=== PATIENT | male | born 1975 | race Hispanic/Latino ===

== ENCOUNTER 2022-01-18 03:49 | Emergency (ER) | payer OTHER ==
[~2022-01-18] VITALS: Ht 180.3 cm; Wt 111.1 kg
[~2022-01-18 03:49] MED LIST: LISI40TA9 PO
[2022-01-18 04:44] LABS: BASOPHILS % (AUTO) 0.2 % (0.0-5.0); EOSINOPHILS % (AUTO) 4.5 % (0.0-8.0); HEMATOCRIT 42.4 % (42-54); LYMPHOCYTES % (AUTO) 37.4 % (21.0-51.0); MEAN CORPUSCULAR HEMOGLOBIN 30.7 pg (27.0-33.0); MEAN CORPUSCULAR HGB CONC 33.5 g/dL (32.0-36.0); MEAN CORPUSCULAR VOLUME 91.8 fL (79-99); MONOCYTES % (AUTO) 13.6 % (3.0-13.0); PLATELET COUNT (AUTO) 240 K/uL (130-400); RED BLOOD CELL COUNT(AUTO) 4.62 MIL/uL (4.50-6.20); RED CELL DISTRIBUTION WIDTH 12.5 % (11.0-15.5); WHITE BLOOD COUNT (AUTO) 8.8 K/uL (4.8-10.8)
[2022-01-18 04:54] LABS: POTASSIUM 4.2 mmol/L (3.5-5.1)
[2022-01-18 05:01] LABS: ALBUMIN 3.7 g/dL (3.5-5.0); BILIRUBIN,TOTAL 0.4 mg/dL (0.2-1.0); TOTAL PROTEIN, SERUM 7.7 g/dL (6.0-8.3)
[2022-01-18 05:53] VITALS: BP 121/78
== END 2022-01-18 06:08 | disposition home or self-care (01) ==
LOC: EDH 03:49
DX: R00.2 Palpitations (principal); F14.10 Cocaine abuse, uncomplicated; F10.10 Alcohol abuse, uncomplicated; F41.9 Anxiety disorder, unspecified; E11.9 Type 2 diabetes mellitus without complications; I10 Essential (primary) hypertension; Z79.899 Other long term (current) drug therapy; Y90.9 Presence of alcohol in blood, level not specified
CPT/HCPCS: 36415; 80053; 84484; 85025; 93005

== ENCOUNTER 2024-11-04 11:14 | Emergency (ER) | payer BC, OTHER ==
[~2024-11-04] VITALS: Ht 180.3 cm; Wt 88.2 kg
--- NOTE | 2024-11-04 11:59 | ERN ---
General Chief Complaint: Tarry Stool Stated Complaint: TARRY STOOL Time Seen by MD: 11:38 History of Present Illness Initial Comments This is a case of 49-year-old male with a past medical history of gastritis, diabetes, hypertension who presented to the ER with the complaints of intermittent left upper quadrant pain associated with black and tarry stools since the past 2 weeks. He also mentions experiencing a pop sensation and pain on the right upper abdominal side while picking up a box recently which persisted. He also mentions experiencing fever, chills, productive cough, cold since the past 3 days. He denies nausea, vomiting, chest pain, palpitations, burning sensation when urinating/increased frequency of urination, diarrhea, shortness of breath. Allergies: Coded Allergies: No Known Drug Allergies (Verified Allergy, Unknown, 03/08/15) Home Meds Active Scripts Lisinopril (Lisinopril) 40 Mg Tablet, 40 MG PO DAILY for 30 Days, TAB Prov:EUNICE FIGUEROA MD 03/08/15 Past Medical History Past Medical History: Depression, Diabetes-Type II, Hypertension Past Surgical History: None Social History Social History: Drugs, ETOH ROS Dictation CONSTITUTIONAL: Fever, chills, cold, headache no weakness, no diaphoresis, no malaise. HEAD/FACE: No signs of trauma. EENT: No eye pain, no blurred vision, no tearing, no double vision, no ear pain, no ear discharge, no nose pain, no nasal congestion, no throat pain, no throat swelling, no mouth pain. RESPIRATORY: Productive cough, no orthopnea, no SOB, no stridor, no wheezing. CARDIOVASCULAR: No chest pain, no edema, no palpitations, no syncope. GASTROINTESTINAL/ABDOMINAL: Right upper quadrant and left upper quadrant pain, black and tarry stools, no constipation, no diarrhea, no nausea, no vomiting. GENITOURINARY: No abnormal discharge, no dysuria, no frequent urination, no hematuria. No complaints of pain in the genitals. MUSCULOSKELETAL: No back pain, no gout, no joint pain, no joint swelling, no muscle pain, no muscle stiffness, no neck pain. INTEGUMENTARY: No change in color, no change in hair/nails, no dryness, no lesion, no lumps, no rash. NEUROLOGICAL/PSYCH: No anxiety, not depressed, no emotional problem, no headache, no numbness, no pre-existing deficit, no history of seizures, no tremors, no weakness. HEMATOLOGIC/LYMPHATIC: Not anemic, no history of blood clots, no apparent bleeding, no bruising, glands not swollen. All Systems Negative, Except as Noted. Physical Exam Physical Exam Dictation Physical Exam Dictation VITAL SIGNS: Reviewed. GENERAL APPEARANCE: Alert, oriented x3, no acute distress HEAD AND FACE: Non-traumatic. EYES: PERRL, pink conjunctivas, eyelid no trauma, anterior chamber clear. NOSE: No discharge, no bleeding. OROPHARYNX: Mouth normal, teeth no caries, tongue pink. Pharynx clear, no erythema. Tonsils no exudates, no abscesses noted. Mucous membrane moist. NECK: Supple, non-tender, no thyromegaly, no masses, no JVD, no bruits. BREAST: Deferred. CHEST: Right-sided lower chest wall tenderness , no crepitus, no paradoxical movement, no retractions. LUNGS: Clear, well-ventilated, symmetric, no rales, no wheezing, no rhonchi, no stridor, good breath sounds bilaterally. HEART: Regular rate, regular rhythm, no murmur, no gallops. VASCULAR: No peripheral edema. ABDOMEN: Soft, right upper quadrant tenderness, positive bowel sounds, nondistended, no guarding, nontender, no rebound, , no Rocha's sign, no hernias. RECTAL: Deferred. GENITAL: Deferred. NEUROLOGICAL: Normal speech, gross motor function intact, gross sensory function intact. MUSCULOSKELETAL: Neck nontender, full range of motion, back nontender, full range of motion. EXTREMITIES: Nontender, full range of motion. SKIN: Color pink, dry, no turgor, no rash, no lacerations, no abrasions, no contusions. LYMPHATICS: Deferred. Results Laboratory and Microbiology Lab and Micro Result Laboratory Tests Test 11/04/24 12:16 11/04/24 13:06 White Blood Count 7.0 K/uL (4.8-10.8) Red Blood Count 4.82 MIL/uL (4.50-6.20) Hemoglobin 15.3 g/dL (14.0-18.0) Hematocrit 44.4 % (42-54) Mean Corpuscular Volume 92.1 fL (79-99) Mean Corpuscular Hemoglobin 31.7 pg (27.0-33.0) Mean Corpuscular Hemoglobin Concent 34.5 g/dL (32.0-36.0) Red Cell Distribution Width 11.9 % (11.0-15.5) Platelet Count 209 K/uL (130-400) Mean Platelet Volume 9.9 fL (7.5-10.5) Immature Granulocyte % (Auto) 0.3 % (0-1) Neutrophils (%) (Auto) 49.4 % (40.0-77.0) Lymphocytes (%) (Auto) 34.2 % (21.0-51.0) Monocytes (%) (Auto) 15.5 % (3.0-13.0) H Eosinophils (%) (Auto) 0.3 % (0.0-8.0) Basophils (%) (Auto) 0.3 % (0.0-5.0) Neutrophils # (Auto) 3.5 K/uL (1.8-7.7) Lymphocytes # (Auto) 2.4 K/uL (1.0-4.8) Monocytes # (Auto) 1.1 K/uL (0.1-1.0) H Eosinophils # (Auto) 0.02 K/uL (0.00-0.70) Basophils # (Auto) 0.02 K/uL (0.00-0.20) Absolute Immature Granulocyte (auto 0.02 K/uL (0-1) Nucleated Red Blood Cells 0.0 % (0.0-0.19) White Cell Morphology Comment See comments Prothrombin Time 10.9 SEC (9.6-11.6) Prothromb Time International Ratio 0.97 (0.85-1.15) Activated Partial Thromboplast Time 28.5 SEC (26.3-35.5) Sodium Level 135 mmol/L (136-145) L Potassium Level 4.4 mmol/L (3.5-5.1) Chloride Level 97 mmol/L (101-111) L Carbon Dioxide Level 26 mmol/L (21-32) Blood Urea Nitrogen 10 mg/dL (7-18) Creatinine 1.0 mg/dL (0.5-1.3) Glomerular Filtration Rate Calc 92 mL/min (>90) Random Glucose 362 mg/dL (70-105) H Total Calcium 9.1 mg/dL (8.5-10.1) Total Bilirubin 0.4 mg/dL (0.2-1.0) Direct Bilirubin 0.1 mg/dL (0.0-0.3) Aspartate Amino Transf (AST/SGOT) 26 U/L (10-37) Alanine Aminotransferase (ALT/SGPT) 37 U/L (12-78) Alkaline Phosphatase 146 U/L (50-136) H Troponin I High Sensitivity < 4 ng/L (4-75) L Total Protein 8.2 g/dL (6.0-8.3) Albumin 3.4 g/dL (3.5-5.0) L Lipase 68 U/L (16-77) Urine Color LIGHT-YELLOW (YELLOW) Urine Appearance CLEAR (CLEAR) Urine pH 5.0 (5.0-8.0) Urine Specific [place] 1.010 (1.001-1.031) Urine Protein NEGATIVE mg/dL (NEGATIVE) Urine Glucose (UA) >=1000 mg/dL (NEGATIVE) H Urine Ketones NEGATIVE mg/dL (NEGATIVE) Urine Occult Blood NEGATIVE (NEGATIVE) Urine Nitrate NEGATIVE (NEGATIVE) Urine Bilirubin NEGATIVE mg/dL (NEGATIVE) Urine Urobilinogen 0.2 mg/dL (0.2-1.0) Urine Leukocyte Esterase NEGATIVE Shannan/uL Urine RBC 0-1 /HPF (0-1) Urine WBC 0-1 /HPF (0-1) Urine Bacteria None /HPF (None Seen) Influenza Type A Antigen Negative For Type A Influenza Type B Antigen Negative For Type B SARS-CoV-2 Antigen (Rapid) PRESUMPTIVE NEGATIVE EKG/XRAY/US/CT/MRI EKG Comment PROCEDURE: EKG - 12 LEAD EKG TRACING- TECHNICAL [facility] Test Date: 2024-11-04 Test Time: 12:41:33 Pat Name: LYUBOV PHELPS Department: [facility] Patient ID: [facility] – [place], [place]-[id number] Room: Gender: Male Animal Care Attendant: [facility] : 1975 Requested By: USHA KAUFFMAN Order Number: [id number] Reading MD: Measurements Intervals [place] Rate: 83 P: 33 [place]: 180 QRS: -58 QRSD: 96 T: 39 QT: 345 QTc: 405 Interpretive Statements Sinus rhythm Left anterior fascicular block Probable anteroseptal infarct, old ST elevation, consider inferior injury No previous ECG available for comparison X-RAY Comment PROCEDURE: CXR2VW - CHEST 2VWS CHEST 2VWS REASON: CP. SUSPECTED RT RIB FRACTURE COMPARISON: 05/24/2004 FINDINGS: Two views of the chest were obtained. Lungs are clear. Heart size is normal. There is no pulmonary vascular congestion. Mediastinum and bony thorax appear unremarkable. IMPRESSION: Normal two view chest x-ray. CT Scan Comment PROCEDURE: ABD PELWWO - CT ABDOMEN/PELVIS W/WO CONTRAS CT ABDOMEN/PELVIS W/WO CONTRAS REASON: RUQ, LUQ PAIN AND TENDERNESS , FEVER COMPARISON: None. TECHNIQUE: Images are obtained from lung bases to the symphysis pubis before and after IV contrast, 75 cc Omnipaque 350. FINDINGS: Lung bases are clear. There are no focal liver lesions. There is a 1 cm cyst lower pole left kidney, kidneys appear otherwise unremarkable. There is no mass, stone or hydronephrosis.. Spleen and pancreas appear unremarkable. The gallbladder appears normal as well. Bowel loops appear unremarkable. This includes normal appearance of the appendix There is no evidence of free fluid or intraperitoneal air. There are no focal fluid collections. Aorta and retroperitoneum appear normal as do pelvic soft tissue structures. The anterior abdominal wall is intact. Osseous structures appear unremarkable. IMPRESSION: 1. Negative pre and postcontrast CT abdomen and pelvis. MDM MDM Potential differential diagnoses include: INFLUENZA COVID GASTROENTERITIS GASTRITIS UPPER GI BLEEDING HEPATIC DISEASE Assessment: We will order CBC was done in order to to rule any anemia, infections and to evaluate the overall health of the patient. CMP was ordered in order to assess various electrolytes, kidney function, liver function ,protein levels and blood glucose levels, CT ABDOMEN/PELVIS TO RULE OUT ANY ACUTE CONDITIONS. I will re-evaluate the patient after treatment and diagnostic exams have returned to determine whether they require further testing, can be safely discharged home, or need admission for further treatment and evaluation. Given the social determinants of health affecting care, including literacy, access to medical care, prescription drug management, and [id number] drugs, I will ensure that treatment plans are tailored accordingly. Revaluation : Patient is awake alert and oriented. Hemodynamically stable. Labs CBC is unremarkable. CMP alkaline phosphatase 146, similar in range when compared to previous values. Glucose level is 362. Troponin levels are normal. EKG resulted in sinus rhythm. Urinalysis positive for glucose. Chest x-ray resulted in no acute findings. CT abdomen/pelvis resulted in no acute findings. Dark green, sticky stool was noted. Disposition: Patient is being discharged home. Advised to Follow up with PCP within 2-3 days Your Influenza, COVID test results came back negative Chest x-ray resulted in no fracture/pulmonary congestion/acute findings CT abdomen/pelvis resulted in no acute findings Follow up with cloth framer, outpatient for further evaluation and workup Avoid spicy, greasy or fatty foods Drink plenty of fluids especially water Monitor for symptoms like increased abdominal pain or tenderness, blood in stool or vomit, high fever or chills, difficulty breathing and seek immediate medical attention in such scenario ED Course Orders Procedure Category Date Status Time Cbc With Differential LAB 11/04/24 Complete 11:47 Basic Metabolic Panel LAB 11/04/24 Complete 11:47 Hepatic Function Panel LAB 11/04/24 Complete 11:47 Influenza Type A & B, LAB 11/04/24 Complete Rapid 11:47 Covid19 (Sars Antigen LAB 11/04/24 Complete Rapid) 11:47 Pt And Ptt LAB 11/04/24 Complete 11:47 Chest 2vws RAD 11/04/24 Resulted 11:47 Ct Abdomen/Pelvis CT 11/04/24 Resulted W/Wo Contras 11:47 Lipase LAB 11/04/24 Complete 11:47 Urinalysis Profile LAB 11/04/24 Complete 11:47 12 Lead Ekg Tracing- EKG 11/04/24 Complete Technical 11:54 Troponin I High LAB 11/04/24 Complete Sensitivity 11:55 Iohexol (Omnipaque) PHA 11/04/24 Complete 13:09 Current Medications Medications (Trade) Dose Ordered Sig/Samantha Route PRN Reason Start Time Stop Time Status Last Admin Dose Admin Iohexol (Omnipaque) 75 ml STK-MED ONCE IV 11/04/24 13:09 11/04/24 13:09 DC Vital Signs Date Time Temp Pulse Resp B/P (MAP) Pulse Ox O2 Delivery O2 Flow Rate FiO2 11/04/24 12:47 99.0 78 18 116/70 99 Room Air* 0 21 11/04/24 11:22 100.9 91 18 148/84 98 Room Air* 0 21 11/04/24 11:16 100.9 91 18 148/84 98 Room Air 0 DX & DISP Disposition: Discharge Departure Impression: Primary Impression: Gastritis Additional Impression: Generalized abdominal pain Critical Time: 30 minutes Condition: Stable Additional Instructions: Follow up with PCP within 2-3 days Your Influenza, COVID test results came back negative Chest x-ray resulted in no fracture/pulmonary congestion/acute findings CT abdomen/pelvis resulted in no acute findings Follow up with cloth framer, outpatient for further evaluation and workup Avoid spicy, greasy or fatty foods Drink plenty of fluids especially water Monitor for symptoms like increased abdominal pain or tenderness, blood in stool or vomit, high fever or chills, difficulty breathing and seek immediate medical attention in such scenario Referrals: PABLO ROSALES MD (PCP) ATTESTATION BY PHYSICIAN I have seen and examined the patient. I reviewed the documentation, medical decision making, and treatment plan as noted by the resident above. I agree with the findings and plan of care. USHA ELLIOTT MD, MD Nov 04, 2024 11:59
--- NOTE | 2024-11-04 12:21 | HMCIMG ---
CHEST 2VWS REASON: CP. SUSPECTED RT RIB FRACTURE COMPARISON: 05/24/2004 FINDINGS: Two views of the chest were obtained. Lungs are clear. Heart size is normal. There is no pulmonary vascular congestion. Mediastinum and bony thorax appear unremarkable. IMPRESSION: Normal two view chest x-ray.
[2024-11-04 12:28] LABS: BASOPHILS # (AUTO) 0.02 K/uL (0.00-0.20); BASOPHILS % (AUTO) 0.3 % (0.0-5.0); EOSINOPHILS # (AUTO) 0.02 K/uL (0.00-0.70); EOSINOPHILS % (AUTO) 0.3 % (0.0-8.0); HEMATOCRIT 44.4 % (42-54); IMMATURE GRANULOCYTE ABSOLUTE 0.02 K/uL (0-1); LYMPHOCYTES # (AUTO) 2.4 K/uL (1.0-4.8); LYMPHOCYTES % (AUTO) 34.2 % (21.0-51.0); MEAN CORPUSCULAR HEMOGLOBIN 31.7 pg (27.0-33.0); MEAN CORPUSCULAR HGB CONC 34.5 g/dL (32.0-36.0); MEAN CORPUSCULAR VOLUME 92.1 fL (79-99); MONOCYTES # (AUTO) 1.1 K/uL (0.1-1.0); MONOCYTES % (AUTO) 15.5 % (3.0-13.0); NEUTROPHILS # (AUTO) 3.5 K/uL (1.8-7.7); NEUTROPHILS % (AUTO) 49.4 % (40.0-77.0); PLATELET COUNT (AUTO) 209 K/uL (130-400); RED BLOOD CELL COUNT(AUTO) 4.82 MIL/uL (4.50-6.20); RED CELL DISTRIBUTION WIDTH 11.9 % (11.0-15.5)
[2024-11-04 12:45] LABS: INR 0.97 (0.85-1.15); PROTHROMBIN TIME 10.9 SEC (9.6-11.6)
[2024-11-04 12:46] LABS: PARTIAL THROMBOPLASTIN TIME 28.5 SEC (26.3-35.5)
--- NOTE | 2024-11-04 13:05 | EKG ---
[facility] Test Date: 2024-11-04 Test Time: 12:41:33 Pat Name: LYUBOV PHELPS Department: ED Room: Gender: M Triage Specialist: [id number] : 1975 Requested By: USHA KAUFFMAN Order Number: [id number] Reading MD: Romario Leija Measurements Intervals [place] Rate: 83 P: 33 [place]: 180 QRS: -58 QRSD: 96 T: 39 QT: 345 QTc: 405 Interpretive Statements Sinus rhythm Left anterior fascicular block Probable anteroseptal infarct, old ST elevation, consider inferior injury Compared to ECG 01/18/2022 04:01:41 Left anterior fascicular block now present Myocardial infarct finding now present ST (T wave) deviation now present Electronically Signed On 11-05-2024 08:00:06 CHIEF TALENT OFFICER by Romario Leija Please click the below link to view image of tracing.
[2024-11-04] MEDS ORDERED: IOHEXOL-350 75 ML VIAL IV ONE (13:09)
[2024-11-04 13:17] LABS: POTASSIUM 4.4 mmol/L (3.5-5.1)
[2024-11-04 13:20] LABS: ALBUMIN 3.4 g/dL (3.5-5.0); BILIRUBIN,DIRECT 0.1 mg/dL (0.0-0.3); BILIRUBIN,TOTAL 0.4 mg/dL (0.2-1.0); TOTAL PROTEIN, SERUM 8.2 g/dL (6.0-8.3)
--- NOTE | 2024-11-04 13:52 | HMCIMG ---
CT ABDOMEN/PELVIS W/WO CONTRAS REASON: RUQ, LUQ PAIN AND TENDERNESS , FEVER COMPARISON: None. TECHNIQUE: Images are obtained from lung bases to the symphysis pubis before and after IV contrast, 75 cc Omnipaque 350. FINDINGS: Lung bases are clear. There are no focal liver lesions. There is a 1 cm cyst lower pole left kidney, kidneys appear otherwise unremarkable. There is no mass, stone or hydronephrosis.. Spleen and pancreas appear unremarkable. The gallbladder appears normal as well. Bowel loops appear unremarkable. This includes normal appearance of the appendix There is no evidence of free fluid or intraperitoneal air. There are no focal fluid collections. Aorta and retroperitoneum appear normal as do pelvic soft tissue structures. The anterior abdominal wall is intact. Osseous structures appear unremarkable. IMPRESSION: 1. Negative pre and postcontrast CT abdomen and pelvis. CT was performed with one or more following dose reduction techniques: automated exposure control, adjustment of the mA and kv according to patient's size, or use of a iterative reconstruction technique.
[2024-11-04 14:07] LABS: COVID19 (SARS ANTIGEN RAPID) PRESUMPTIVE NEGATIVE (NEGATIVE); INFLUENZA TYPE A Negative For Type A (NEGATIVE); INFLUENZA TYPE B Negative For Type B (NEGATIVE)
[2024-11-04 14:08] LABS: APPEARANCE,URINE CLEAR (CLEAR); BILIRUBIN,URINE NEGATIVE (NEGATIVE); COLOR,URINE LIGHT-YELLOW (YELLOW); GLUCOSE, URINE (UA) >=1000 mg/dL (NEGATIVE); KETONES,URINE NEGATIVE (NEGATIVE); LEUKOCYTE ESTERASE ,URINE NEGATIVE Leu/uL (NEGATIVE); NITRATE,URINE NEGATIVE (NEGATIVE); OCCULT BLOOD,URINE NEGATIVE (NEGATIVE); PROTEIN,URINE NEGATIVE (NEGATIVE); UROBILINOGEN,URINE 0.2 mg/dL (0.2-1.0)
[2024-11-04 14:09] LABS: ADD UA MICROSCOPIC YES
[2024-11-04 14:30] LABS: RBC,URINE 0-1 /HPF (0-1); WBC,URINE 0-1 /HPF (0-1)
[2024-11-04 15:33] VITALS: BP 122/67; PULSE 70; RESP 18; TEMP 99; O2SAT 97
== END 2024-11-04 15:37 | disposition home or self-care (01) ==
LOC: EDH 11:14
DX: K29.70 Gastritis, unspecified, without bleeding (principal); R10.84 Generalized abdominal pain; E11.9 Type 2 diabetes mellitus without complications; I10 Essential (primary) hypertension; Z79.899 Other long term (current) drug therapy; Z20.822 Contact with and (suspected) exposure to COVID-19
CPT/HCPCS: 99284; 74178; 71046; 87426; 80076; 84484; 80048; 83690; 85025; 85610; 85730; 87804 ×2; 81001; 36415; 93005; Q9967